=== PATIENT | male | born 1965 | race Caucasian/White ===

== ENCOUNTER 2016-05-22 21:22 | Emergency (ER) | payer MEDICARE, OTHER ==
[2016-05-22 23:02] LABS: RED BLOOD COUNT 4.84 M/UL (4.20-5.50); WHITE BLOOD COUNT 11.3 K/UL (4.5-11.0)
[2016-05-22 23:23] LABS: BUN/CREATININE RATIO 13 (0-10)
== END 2016-05-23 02:57 | disposition home or self-care (01) ==
LOC: ER1 21:22
PROVIDERS: Physician Assistant
DX: J44.1 Chronic obstructive pulmonary disease with (acute) exacerbation (principal); I25.10 Atherosclerotic heart disease of native coronary artery without angina pectoris; R50.9 Fever, unspecified; I10 Essential (primary) hypertension; Z88.5 Allergy status to narcotic agent
CPT/HCPCS: 36415; 71020; 80053; 82550; 82553; 83605; 83874; 84484; 85025; 87040; 87081; 87880; 93005; 94664; 96361; 96374; 96375; 99283; J0696; J2405; J2930; J7050

== ENCOUNTER 2016-07-26 10:59 | Emergency (ER) | payer MEDICARE, OTHER | END 2016-07-26 12:40 | disposition home or self-care (01) | LOC: ER1 10:59 | DX: S83.511A Sprain of anterior cruciate ligament of right knee, initial encounter (principal); I10 Essential (primary) hypertension; J44.9 Chronic obstructive pulmonary disease, unspecified; F17.210 Nicotine dependence, cigarettes, uncomplicated; Z88.5 Allergy status to narcotic agent; Z79.899 Other long term (current) drug therapy; X50.1XXA Overexertion from prolonged static or awkward postures, initial encounter | CPT/HCPCS: 73564; 99283 ==